=== PATIENT | male | born 1975 | race African-American/Black ===

== ENCOUNTER 2018-03-18 20:18 | Emergency (ER) | payer SELFPAY ==
[~2018-03-18] VITALS: Ht 195.6 cm; Wt 104.4 kg
[2018-03-18 23:45] VITALS: BP 133/78
[2018-03-18] MEDS ORDERED: IBUPROFEN 600MG TABLET PO ONE (23:45)
[2018-03-18] MEDS ORDERED: CEPHALEXIN 250MG CAPSULE PO ONE (23:45)
== END 2018-03-19 00:15 | disposition home or self-care (01) ==
LOC: ER 20:18
DX: K08.89 Other specified disorders of teeth and supporting structures (principal); R68.84 Jaw pain
CPT/HCPCS: 99283